=== PATIENT | male | born 1990 | race Caucasian/White ===

== ENCOUNTER 2019-07-02 06:07 | Emergency (ER) | payer OTHER ==
[~2019-07-02] VITALS: Ht 182.9 cm; Wt 97.9 kg
[2019-07-02] MEDS ORDERED: HYDROmorphone 1 MG/ML, 1ML VIAL IVPush PRN (06:30)
[2019-07-02] MEDS ORDERED: methylPREDNISolone SOD SUCC 125 MG/2 ML IVPush ONE (06:30)
[2019-07-02] MEDS ORDERED: KETOROLAC 30 MG/1 ML ONE (06:30)
[2019-07-02] MEDS ORDERED: KETOROLAC 30 MG/1 ML IVPush ONE (06:30)
[2019-07-02] MEDS ORDERED: SODIUM CHLORIDE FLUSH 10ML SYR IVF ONE (06:30)
[2019-07-02] MEDS ORDERED: ONDANSETRON 2MG/ML, 2ML IVPush ONE (06:30)
[2019-07-02] MEDS ORDERED: ONDANSETRON 2MG/ML, 2ML ONE (06:31)
[2019-07-02] MEDS ORDERED: methylPREDNISolone SOD SUCC 125 MG/2 ML ONE (06:31)
[2019-07-02] MEDS ORDERED: HYDROmorphone 1 MG/ML, 1ML VIAL ONE (06:31)
[2019-07-02] MEDS ORDERED: DIAZEPAM 5 MG/ML, 2ML IVPush ONE (06:34)
[2019-07-02] MEDS ORDERED: LIDODERM 5% PATCH TD ONE ×2 (07:35→08:00)
[2019-07-02] MEDS ORDERED: DIAZEPAM 5 MG/ML, 2ML ONE (07:41)
--- NOTE | 2019-07-02 07:46 | NUR ---
PATIENT MEDICATED PER EMAR. RESTING ON GURNEY WITH CALL LIGHT IN REACH.
[2019-07-02 09:06] VITALS: BP 128/70
--- NOTE | 2019-07-02 09:26 | NUR ---
PATIENT MEDICATED WITH PEPCID AND ZOFRAN PER EMAR.
--- NOTE | 2019-07-02 09:32 | NUR ---
Patient given discharge instructions and they have confirmed that they understand the instructions. Patient ambulatory with steady gait.
== END 2019-07-02 09:34 | disposition home or self-care (01) ==
LOC: ED 06:31
DX: S39.012A Strain of muscle, fascia and tendon of lower back, initial encounter (principal); F17.200 Nicotine dependence, unspecified, uncomplicated; X58.XXXA Exposure to other specified factors, initial encounter; Z72.89 Other problems related to lifestyle; Y93.89 Activity, other specified; Y92.89 Other specified places as the place of occurrence of the external cause; Y99.8 Other external cause status
CPT/HCPCS: 96374; 96375; 99283; J1170; J1885; J2405; J2930; J3360